=== PATIENT | male | born 2005 | race Two or more races ===

== ENCOUNTER → 2024-12-13 | Outpatient (CLI) | payer BC, SELFPAY ==
[2024-12-13 17:47] LABS: Basophils % (Auto) 0 % (0-2.5); Eosinophils # (Auto) 0.2 Thou/mm3 (0.0-0.5); Eosinophils % (Auto) 2 % (0-10); Hematocrit 45.3 % (41.0-53.0); Hemoglobin 15.3 g/dL (13.5-16.0); Immature Granulocytes % (Auto) 0 % (0-0); Immature Granulocytes Auto 0.01 Thou/mm3 (0.00-0.00); Lymphocytes % (Auto) 22 % (10-50); Mean Corpuscular HGB Conc 33.8 g/dl (31.0-37.0); Mean Corpuscular Hemoglobin 28.3 pg (25.0-35.0); Mean Corpuscular Volume 84 fL (80-100); Monocytes # (Auto) 0.5 Thou/mm3 (0.0-0.8); Monocytes % (Auto) 5 % (0-12); Neutrophils # (Auto) 6.2 Thou/mm3 (1.8-7.7); Neutrophils % (Auto) 70 % (37-80); Nucleated Red Blood Cell % 0 /100 WBC (0); Platelet Count 218 Thou/mm3 (140-440); RDW Standard Deviation 39.7 fL (35.1-43.9); White Blood Count 8.8 Thou/mm3 (3.8-10.6)
[2024-12-13 17:51] LABS: Glucose Estimated Average 103 mg/dL (80-131); Hemoglobin A1C 5.2 % Hgb (4.8-6.0)
[2024-12-13 18:01] LABS: Alanine Aminotransferase 20 U/L (10-49); Albumin, Serum 4.6 gm/dL (3.5-5.0); Albumin/Globulin Ratio 1.8 (1.2-2.2); Alkaline Phosphatase 114 U/L (46-116); Anion Gap 12 (7-16); Aspartate Amino Transferase 35 U/L (0-34); BUN/Creatinine Ratio 13 Ratio (12-20); Bilirubin,Total 0.5 mg/dL (0.3-1.2); Blood Urea Nitrogen 15 mg/dL (9-23); Calcium 9.5 mg/dL (8.3-10.6); Calcium (Corrected) 9.5 mg/dL (8.5-10.1); Carbon Dioxide 24.4 mMol/L (20.0-31.0); Cardiac Risk Estimate 3.3 RATIO (4.0-6.7); Chloride 105 mMol/L (98-107); Cholesterol 184 mg/dL (132-200); Creatinine (Component) 1.2 mg/dL (0.6-1.3); Globulin 2.6 gm/dL (2.3-3.5); Glucose 85 mg/dL (74-106); HDL Cholesterol 55 mg/dL (40-60); LDL Cholesterol,Calculated 106 mg/dL (0-130); Osmolality,Calculated 281 (275-295); Potassium 4.2 mMol/L (3.4-5.1); Sodium 141 mMol/L (136-145); Thyroid Stimulating Hormone 0.96 uIU/mL (0.55-4.78); Total Protein 7.2 gm/dL (5.7-8.2); Triglycerides 114 mg/dL (30-150); eGFR > 60 See Note
[2024-12-13 18:14] LABS: Syphilis Nonreactive (Nonreactive)
[2024-12-13 18:38] LABS: Folate 15.81 ng/mL (>5.38); Hepatitis B Core Antibody IgM Non Reactive (Non React); Hepatitis B Surface Antigen Non Reactive (Non React); Hepatitis C Antibody Non Reactive (Non React); Vitamin B12 585 pg/mL (211-911)
[2024-12-13 19:29] LABS: Hepatitis A Antibody IgM Non Reactive (Non React)
[2024-12-14 15:51] LABS: Chlamydia trachomatis PCR Negative (Not Detect); Neisseria Gonorrhoeae DNA PCR Negative (Not Detect); Trichomonas Negative (Negative)
[2024-12-17 07:07] LABS: HIV Ag/Ab, 4th Gen NON-REACTIVE
== END | disposition home or self-care (01) ==
LOC: COPL 16:48
PROVIDERS: PCP Internal Medicine; Referring Provider Internal Medicine; Visit Provider Internal Medicine
DX: Z11.3 Encounter for screening for infections with a predominantly sexual mode of transmission (principal); Z13.6 Encounter for screening for cardiovascular disorders; F07.81 Postconcussional syndrome; R20.2 Paresthesia of skin; Z79.899 Other long term (current) drug therapy
CPT/HCPCS: 36415; 80053; 80061; 80074; 82306; 82607; 82746; 83036; 84443; 85025; 86780; 87389; 87491; 87591; 87661

== ENCOUNTER 2025-03-25 11:57 | Emergency (ER) | payer BC, SELFPAY ==
[2025-03-25 11:58] VITALS: BMI 26.6
[2025-03-25 12:33] LABS: Collection Type, Urine Clean Catch; Squamous Epithelial Cell,Urine 0 /hpf (0-5)
[2025-03-25 12:42] VITALS: BP 118/76; PULSE 77; RESP 19; TEMP 36.7; O2SAT 98
[2025-03-25 12:47] LABS: Bilirubin,Urine Negative (Negative); Blood,Urine Negative (Negative); Clarity,Urine Clear (Clear/Hazy); Color,Urine Lt-Yellow (Lt Yel-Yel); Glucose, Urine Negative (Negative); Ketones,Urine 1+ (Negative); Leukocyte Esterase,Urine Negative (Negative); Nitrite,Urine Negative (Negative); PH,Urine 7.0 (5.0-7.0); Protein,Urine Negative (Neg - Trace); RBC,Urine 1 /hpf (0-3); Specific Gravity,Urine 1.015 (1.001-1.035); Urobilinogen,Urine Negative mg/dL (0.0-1.0); WBC,Urine 2 /hpf (0-5)
[2025-03-25 12:49] LABS: Basophils # (Auto) 0.0 Thou/mm3 (0.0-0.2); Basophils % (Auto) 0 % (0-2.5); Eosinophils # (Auto) 0.1 Thou/mm3 (0.0-0.5); Eosinophils % (Auto) 1 % (0-10); Hematocrit 45.6 % (41.0-53.0); Hemoglobin 16.4 g/dL (13.5-16.0); Immature Granulocytes Auto 0.04 Thou/mm3 (0.00-0.00); Lymphocytes # (Auto) 1.7 Thou/mm3 (1.0-4.8); Lymphocytes % (Auto) 17 % (10-50); Mean Corpuscular HGB Conc 36.0 g/dl (31.0-37.0); Mean Corpuscular Hemoglobin 29.2 pg (25.0-35.0); Mean Corpuscular Volume 81 fL (80-100); Monocytes # (Auto) 0.4 Thou/mm3 (0.0-0.8); Monocytes % (Auto) 4 % (0-12); Neutrophils # (Auto) 7.9 Thou/mm3 (1.8-7.7); Neutrophils % (Auto) 78 % (37-80); Nucleated Red Blood Cell # 0.00 Thou/mm3 (0.00-0.00); Nucleated Red Blood Cell % 0 /100 WBC (0); Platelet Count 193 Thou/mm3 (140-440); RDW Standard Deviation 38.0 fL (35.1-43.9); Red Blood Count 5.61 Miln/mm3 (4.50-5.90); White Blood Count 10.2 Thou/mm3 (3.8-10.6)
--- NOTE | 2025-03-25 13:10 | PD.EDRME ---
Rapid Medical Screening Exam RME Arrival date/time: 03/25/25 11:57 Chief Complaint: Nausea/Vomiting/Diarrhea Vital signs: Vital Signs Temperature 98.1 F 03/25/25 12:42 Pulse Rate 77 03/25/25 12:42 Respiratory Rate 19 03/25/25 12:42 Blood Pressure 118/76 03/25/25 12:42 Pulse Oximetry (%) 98 03/25/25 12:42 Oxygen Delivery Method Room Air 03/25/25 12:42 Pulse ox on room air 98% Vital signs reviewed by provider: Yes RME Narrative: 19-year-old male presents to the ED with complaint of abdominal pain with vomiting. Patient tells me he believes he was food poisoned. This began earlier today.
[2025-03-25 13:12] LABS: Alanine Aminotransferase 22 U/L (10-49); Albumin, Serum 5.1 gm/dL (3.5-5.0); Albumin/Globulin Ratio 1.8 (1.2-2.2); Alkaline Phosphatase 95 U/L (46-116); Anion Gap 14 (7-16); Aspartate Amino Transferase 51 U/L (0-34); BUN/Creatinine Ratio 5 Ratio (12-20); Bilirubin,Total 0.9 mg/dL (0.3-1.2); Blood Urea Nitrogen 7 mg/dL (9-23); Calcium 10.1 mg/dL (8.3-10.6); Calcium (Corrected) 10.1 mg/dL (8.5-10.1); Carbon Dioxide 23.1 mMol/L (20.0-31.0); Chloride 105 mMol/L (98-107); Creatinine (Component) 1.4 mg/dL (0.6-1.3); Estimated Creatinine Clearance 83.5 mL/min (>60); Globulin 2.9 gm/dL (2.3-3.5); Glucose 119 mg/dL (74-106); Osmolality,Calculated 282 (275-295); Potassium 3.5 mMol/L (3.4-5.1); Sodium 142 mMol/L (136-145); Total Protein 8.0 gm/dL (5.7-8.2); eGFR > 60 See Note
[2025-03-25 13:47] LABS: Basophils # (Auto) 0.0 Thou/mm3 (0.0-0.2); Basophils % (Auto) 0 % (0-2.5); Eosinophils # (Auto) 0.0 Thou/mm3 (0.0-0.5); Eosinophils % (Auto) 0 % (0-10); Hematocrit 44.8 % (41.0-53.0); Hemoglobin 16.1 g/dL (13.5-16.0); Immature Granulocytes Auto 0.06 Thou/mm3 (0.00-0.00); Lymphocytes # (Auto) 1.3 Thou/mm3 (1.0-4.8); Lymphocytes % (Auto) 8 % (10-50); Mean Corpuscular HGB Conc 35.9 g/dl (31.0-37.0); Mean Corpuscular Hemoglobin 28.7 pg (25.0-35.0); Mean Corpuscular Volume 80 fL (80-100); Monocytes # (Auto) 0.6 Thou/mm3 (0.0-0.8); Monocytes % (Auto) 4 % (0-12); Neutrophils # (Auto) 13.8 Thou/mm3 (1.8-7.7); Neutrophils % (Auto) 87 % (37-80); Nucleated Red Blood Cell # 0.00 Thou/mm3 (0.00-0.00); Nucleated Red Blood Cell % 0 /100 WBC (0); Platelet Count 210 Thou/mm3 (140-440); RDW Standard Deviation 36.3 fL (35.1-43.9); Red Blood Count 5.61 Miln/mm3 (4.50-5.90); White Blood Count 15.8 Thou/mm3 (3.8-10.6)
--- NOTE | 2025-03-25 18:09 | PD.EDNV ---
Nausea/Vomit./Diarrhea-RME/HPI General Chief complaint: Nausea/Vomiting/Diarrhea Stated complaint: VOMITING FOR 1 HOUR AFTER EATING Time Seen by Provider: 03/25/25 17:48 Arrival date/time: 03/25/25 11:57 RME / HPI RME / HPI Narrative: 19-year-old male presents to the ED with complaint of abdominal pain with vomiting. Patient tells me he believes he was food poisoned. This began earlier today. This section includes all my notes and documentations, including HPI, PE, and ED course. Sebastian Guadalupe MD HPI: 19yo male with no significant past medical history presents to the ED for complaints of N/V/D and generalized body aches x 24 hours. Reports diffuse muscle cramping. No other complaints reported. ROS: All negative except as documented in HPI. Physical Exam: General: Alert and oriented. Diffuse cramping noted. Eyes: Conjunctivae and lids clear. ENT: No nasal congestion. Neck: Supple. Heart: RRR. Lungs: No respiratory distress. Good air movement. No rhonchi, wheezing, rales. Abdomen: Soft and nontender. Normal bowel sounds. No distension. No rebound or guarding. Back: No CVA tenderness. Skin: Warm and dry. Neuro: Alert and oriented X 3. I reviewed all diagnostic test results. Blood tests remarkable for WBC 15.8, Creatinine 1.4, K 3.5, and Mg 1.6. UA unremarkable. UDS positive for marijuana. COVID/Influenza negative. At this point, diagnoses include stomach flu. Treatment here included Potassium, Morphine, Toradol, Zofran, NS, and Magnesium. Significant improvement noted. Recommended outpatient management. Based on my best medical judgment, made decision no further evaluation or treatment indicated at this time. Patient understands and agrees to the discharge instructions customized and printed, see below. Discharge Instructions from Dr. Guadalupe: 1. After evaluation, you have stomach flu. See attached handout on gastroenteritis. 2. Take Metronidazole (Flagyl) for the stomach flu. 3. Your job is to stay hydrated. Zofran for nausea/vomiting. Increase oral fluid and maintain clear urine. If dark or yellow, increase oral fluid. 4. Do not take any medications to stop your diarrhea. But try to replenish the fluid and electrolytes you are losing. 5. Some good choices are water (but not only water because it will cause electrolyte abnormalities), sports drinks like Gatorade (with less sugar content), coconut water, chicken stock, and other fluid with electrolytes (like Pedialyte). Your potassium was low. Eat a banana daily. Your magnesium was low. Eat more food rich in magnesium, such as green and leafy vegetables and peanuts and cashews and almonds. 6. See a private doctor on 03/27/2025 for recheck. Ask to review all test results and official radiology reports, to make sure you receive all necessary follow-ups and monitoring. To make sure there is no serious intra-abdominal condition, ask for help with more investigation not available here in the ER. Such as EGD or scoping the stomach, colonoscopy or scoping the colon, and referral to see housekeeper and laundry assistant. 7. Seek immediate medical care with worsening or with any concerns. Sebastian Guadalupe MD Related Data Previous Rx's ?Medication ?Instructions ?Recorded metoclopramide HCl 10 mg tablet 10 mg PO Q6H PRN nausea and 10/31/21 (Reglan) vomiting #20 tabs metoclopramide HCl 10 mg tablet 10 mg PO Q6H PRN nausea and 01/27/22 (Reglan) vomiting #20 tabs ondansetron 4 mg disintegrating 4 mg PO Q8H PRN nausea and 08/10/23 tablet vomiting #30 tabs metronidazole 250 mg tablet 250 mg PO BID 3 days #6 tabs 03/25/25 ondansetron 4 mg disintegrating 4 mg PO TID PRN nausea and 03/25/25 tablet vomiting 30 days #10 tabs Allergies Allergy/AdvReac Type Severity Reaction Status Date / Time No Known Allergies Allergy Verified 03/25/25 12:00 Review of Systems Review of Systems Systems Reviewed: All systems reviewed, normal except as documented Past Medical History Past Medical History CARDIAC: Negative Cardiac Disorders or Congestive Heart Failure RESPIRATORY: Negative Chronic Obstructive Pulmonary Disease (COPD) or Asthma GENITOURINARY: Negative Renal Disease ENDOCRINE: Negative Diabetes Mellitus Type 1 or Diabetes Mellitus Type 2 HEMATOLOGIC: Negative Sickle Cell Disease Social History SMOKING STATUS: Never smoker ED Exam Narrative Physical exam: As noted in HPI. Course Quality Measures none Orders Category Date Time Status Bedside COVID-19 Antigen Test NOW Care 03/25/25 18:04 Active Bedside Influenza A&B Antigen Test NOW Care 03/25/25 18:04 Completed Saline [Insert IV] NOW Care 03/25/25 18:04 Active Alcohol, Blood Medical Stat Lab 03/25/25 12:36 Completed Amylase Stat Lab 03/25/25 12:36 Completed Bilirubin,Direct Stat Lab 03/25/25 12:36 Completed CBC Stat Lab 03/25/25 12:36 Completed CBC Stat Lab 03/25/25 13:39 Completed Comprehensive Metabolic Panel Stat Lab 03/25/25 12:36 Completed Drug Screen,Urine Stat Lab 03/25/25 20:27 Ordered Lipase Stat Lab 03/25/25 12:36 Completed Magnesium Stat Lab 03/25/25 12:36 Completed Urinalysis Stat Lab 03/25/25 20:27 Ordered KCL 10% Liq UDC 15 ML Med 03/25/25 18:05 Discontinued 40 meq PO X1 ONE Ketorolac Inj [Toradol Inj] Med 03/25/25 18:05 Discontinued 30 mg IVP X1 ONE Magnesium Sulfate 2 GM Ivpb [Magnesium Sulfate Ivpb] Med 03/25/25 20:06 Active 2 gm in 50 ml IV X1 Morphine Inj Med 03/25/25 18:05 Discontinued 2 mg IVP X1 ONE Ondansetron Inj [Zofran Inj] Med 03/25/25 18:05 Discontinued 4 mg IVP X1 ONE Ondansetron Odt [Zofran Odt] Med 03/25/25 12:07 Active 4 mg PO Q1HR PRN Sodium Chloride 0.9% 1000 ml [Ns] 1,000 ml Med 03/25/25 18:05 Discontinued IV 999 mls/hr Sodium Chloride 0.9% 1000 ml [Ns] 1,000 ml Med 03/25/25 18:05 Discontinued IV 999 mls/hr Vital Signs Vital signs: Vital Signs Temperature 98.1 F 03/25/25 12:42 Pulse Rate 77 03/25/25 12:42 Respiratory Rate 19 03/25/25 12:42 Blood Pressure 118/76 03/25/25 12:42 Pulse Oximetry (%) 98 03/25/25 12:42 Oxygen Delivery Method Room Air 03/25/25 12:42 Nausea/Vomiting/Diarrhea MDM Narrative MDM Narrative:: 19yo male with no significant past medical history presents to the ED for complaints of N/V/D and generalized body aches x 24 hours. Reports diffuse muscle cramping. No other complaints reported. Patient data External records reviewed:: [facility] previous records (Per chart review, patient was seen here on 08/10/23 for colitis.) Clinical information provided by:: patient Social determinants that could affect healthcare access:: none Patient has the following chronic illnesses:: none How is presenting disease/condition affected by chronic disease/condition?: no chronic disease Evaluation data The following diagnostics were reviewed and interpreted by me:: lab results Lab and/or radiology exams considered but not ordered:: none Interpretation Summary: I reviewed all diagnostic test results. Blood tests remarkable for WBC 15.8, Creatinine 1.4, K 3.5, and Mg 1.6. UA unremarkable. UDS positive for marijuana. COVID/Influenza negative. Medications / Prescriptions Medications / Prescriptions considered but not ordered:: none Medication administrations:: Medication Administration History Magnesium Sulfate (Magnesium Sulfate Ivpb) 2 gm in 50 mls @ 25 mls/hr IV X1 ONE Stop: 03/25/25 22:05 Last Admin: 03/25/25 20:32 Dose: 25 mls/hr Documented By: WILLIAMS Ondansetron HCl (Ondansetron Odt 4 Mg Tabrap) 4 mg PO Q1HR PRN PRN Reason: PERSISTENT NAUSEA OR VOMITING Discontinued Medications Sodium Chloride (Ns) 1,000 mls @ 999 mls/hr IV .Q1H1M ONE Stop: 03/25/25 19:05 Last Infusion: 03/25/25 19:54 Dose: Infused Documented By: Admin: 03/25/25 18:53 Dose: 999 mls/hr Documented By: JEREMY Sodium Chloride (Ns) 1,000 mls @ 999 mls/hr IV .Q1H1M ONE Stop: 03/25/25 19:05 Last Admin: 03/25/25 20:09 Dose: 999 mls/hr Documented By: WILLIAMS Ketorolac Tromethamine (Ketorolac Inj 30 Mg/Ml Vial) 30 mg IVP X1 ONE Stop: 03/25/25 18:06 Last Admin: 03/25/25 18:51 Dose: 30 mg Documented By: JEREMY Morphine Sulfate (Morphine Sulf Inj 10 Mg/Ml Vial) 2 mg IVP X1 ONE Stop: 03/25/25 18:06 Ondansetron HCl (Ondansetron Inj 2 Mg/Ml Inj 2 Ml) 4 mg IVP X1 ONE; Protocol Stop: 03/25/25 18:06 Last Admin: 03/25/25 18:52 Dose: 4 mg Documented By: JEREMY Potassium Chloride (Potassium Chloride 10% 20 Meq/15 Ml Udc) 40 meq PO X1 ONE Stop: 03/25/25 18:06 Last Admin: 03/25/25 18:50 Dose: 40 meq Documented By: JEREMY Potassium, Morphine, Toradol, Zofran, NS, Magnesium Consultations Consultation(s) initiated? (list below): No Diagnosis Nausea Differential Diagnosis: traveler's diarrhea, food poisoning, gastroenteritis and dehydration Most likely diagnosis given after review of the tests above:: Stomach flu Admission Indicated Admission indicated?: not indicated Explain why admission is indicated or not indicated:: With significant improvement and no condition needing emergent intervention, there was no indication for admission. Admission Request Was there a request for admission?: No Disposition Plan Disposition Plan: Discharge Discharge Attestation Discharge Attestation: The patient and all family members were given an opportunity to ask questions and understood the discharge instructions. Discharge instructions specifically effects, indications for sooner follow up or return to the emergency department, and the expected course of current diagnosis. Patient condition: Stable Discharge Plan Plan Patient Disposition: HOME (Self Care) Prescriptions/Referrals Prescriptions/Med Rec: New metronidazole 250 mg tablet 250 mg PO BID 3 Days Qty: 6 0RF ondansetron 4 mg tablet,disintegrating 4 mg PO TID PRN (Reason: nausea and vomiting) 30 Days Qty: 10 0RF No Action metoclopramide HCl [Reglan] 10 mg tablet 10 mg PO Q6H PRN (Reason: nausea and vomiting) Qty: 20 0RF metoclopramide HCl [Reglan] 10 mg tablet 10 mg PO Q6H PRN (Reason: nausea and vomiting) Qty: 20 0RF ondansetron 4 mg tablet,disintegrating 4 mg PO Q8H PRN (Reason: nausea and vomiting) Qty: 30 0RF Referrals: No Primary/Family,Physician [Primary Care Provider] - In 1 week Problem List Clinical Impression: Stomach flu Patient/Caregiver Discharge Instructions Discharge Activity: activity as tolerated Education Materials: ED Gastroenteritis, Viral (Adult) Additional Instructions: Discharge Instructions from Dr. Guadalupe: 1. After evaluation, you have stomach flu.? See attached handout on gastroenteritis. 2. Take Metronidazole (Flagyl) for the stomach flu. 3. Your job is to stay hydrated.? Zofran for nausea/vomiting.? Increase oral fluid and maintain clear urine.? If dark or yellow, increase oral fluid. 4. Do not take any medications to stop your diarrhea.? But try to replenish the fluid and electrolytes you are losing. 5. Some good choices are water (but not only water because it will cause electrolyte abnormalities), sports drinks like Gatorade (with less sugar content), coconut water, chicken stock, and other fluid with electrolytes (like Pedialyte). Your potassium was low. Eat a banana daily. Your magnesium was low. Eat more food rich in magnesium, such as green and leafy vegetables and peanuts and cashews and almonds. 6. See a private doctor on 03/27/2025 for recheck. Ask to review all test results and official radiology reports, to make sure you receive all necessary follow-ups and monitoring. To make sure there is no serious intra-abdominal condition, ask for help with more investigation not available here in the ER. Such as EGD or scoping the stomach, colonoscopy or scoping the colon, and referral to see housekeeper and laundry assistant. 7. Seek immediate medical care with worsening or with any concerns. Print Language: Danish Stand Alone Forms: [facility] Award Info., Patient Portal Info Letter
[2025-03-25] MEDS: POTASSIUM CHLORIDE 10% 20 MEQ/15 ML UDC 40 MEQ PO (18:50)
[2025-03-25] MEDS: KETOROLAC INJ 30 MG/ML VIAL IVP (18:51)
[2025-03-25] MEDS: ONDANSETRON INJ 2 MG/ML INJ 2 ML 4 MG IVP (18:52)
[2025-03-25] MEDS: SODIUM CHLORIDE 0.9% 1000 ML 1,000 ML 999 ML IV ×2 (18:53→20:09)
[2025-03-25 19:01] VITALS: BP 123/66; PULSE 78; RESP 15; TEMP 38.1; O2SAT 100
[2025-03-25 19:02] LABS: Alcohol, Blood Medical < 3.0 mg/dL (0-10.0); Bilirubin,Direct 0.3 mg/dL (0.0-0.3); Lipase 43 U/L (12-53); Magnesium 1.6 mg/dL (1.6-2.6)
[2025-03-25 19:40] LABS: Amphetamine/Methamp Scrn,U Negative (Negative); Barbiturate Screen,Urine Negative (Negative); Benzodiazepines Screen,Urine Negative (Negative); Benzoylecgonine Screen, Ur Negative (Negative); Fentanyl Screen,Urine Negative (Negative); Opiate Screen,Urine Negative (Negative); THC Screen,Urine Positive (Negative)
[2025-03-25 19:41] LABS: Amylase 95 U/L (30-118)
[2025-03-25] MEDS: Magnesium Sulfate 2 GM Ivpb 2 GM/50 ML BAG IV (20:32)
[2025-03-25 20:40] VITALS: BP 113/62; PULSE 68; RESP 19; TEMP 37.4; O2SAT 98
[2025-03-25 22:17] VITALS: BP 116/73; PULSE 71; RESP 19; TEMP 36.8; O2SAT 99
== END 2025-03-25 22:43 | disposition home or self-care (01) ==
PROVIDERS: Family Medicine; Physician Assistant; Emergency Provider Emergency Medicine
DX: A08.4 Viral intestinal infection, unspecified (principal)
CPT/HCPCS: 36415; 80053; 80307; 80320; 81001; 82150; 82248; 83690; 83735; 85025; 87400; 87811; 96361; 96365; 96366; 96375; 99284; J1885; J2405; J3475; J7030; A9270; G0480

== ENCOUNTER → 2025-05-02 | Outpatient (CLI) | payer BC, SELFPAY ==
--- NOTE | 2025-05-02 16:15 | XR_ITS ---
Examination: Abdomen sonogram, Limited Date and time of exam: May 02, 2025 at 1625 hours INDICATIONS: Right upper abdominal pain beginning one month ago Technique: Real-time anton scale transabdominal sonographic images of the upper abdomen obtained. Findings: Normal gallbladder. Normal common bile duct 0.3 cm Pancreatic and 1.5 cm Liver 15.5 cm no liver lesions Normal hepatopedal portal venous flow Patent IVC IMPRESSION: Negative examination
== END | disposition home or self-care (01) ==
PROVIDERS: PCP Internal Medicine; Referring Provider Specialist; Visit Provider Specialist
DX: R14.0 Abdominal distension (gaseous) (principal); R10.32 Left lower quadrant pain; R11.0 Nausea; R94.5 Abnormal results of liver function studies
CPT/HCPCS: 76705